=== PATIENT | female | born 1945 ===

== ENCOUNTER → 2017-02-26 | Emergency (ER) | payer MEDICARE, OTHER ==
[~2017-02-26] MED LIST: Bupivacaine PF 0.5% 30 ML VIAL ONE; Midazolam HCl 10 mg/2 ml Vial ONE; Ondansetron HCl/PF 4 MG/2 ML Vial ONE
--- NOTE | 2017-02-26 23:45 | RAD ---
LEFT SHOULDER THREE VIEWS: 02/26/17 HISTORY: Fall, left shoulder pain. FINDINGS/IMPRESSION: There is anterior/subcoracoid dislocation of the glenohumeral joint. POS: [id number]
--- NOTE | 2017-02-27 10:42 | RAD ---
LEFT SHOULDER 3 VIEWS: Date: 02/27/17 HISTORY: Follow-up left shoulder dislocation after reduction. COMPARISON: 02/26/17. FINDINGS: The previously noted anterior subcoracoid dislocation of the left shoulder has been reduced. AC join t arthrosis. IMPRESSION: Reduction of the previously noted anterior subcoracoid left glenohumeral joint dislocation. POS: LINDA
== END ==
LOC: MADERS 23:24
DX: S43.015A Anterior dislocation of left humerus, initial encounter (principal); F32.9 Major depressive disorder, single episode, unspecified; Z79.899 Other long term (current) drug therapy; W18.09XA Striking against other object with subsequent fall, initial encounter
CPT/HCPCS: 23650; 96374; 96375; 96376; G0390; J1170; J2250; J2405; S0020

== ENCOUNTER 2019-02-24 13:34 | Emergency (ER) | payer BC, MEDICARE ==
[2019-02-24] MEDS ORDERED: Lidocaine 1% w/Epinephrine 1:100K 30 ML VIAL ONE (13:53)
[2019-02-24] MEDS ORDERED: Adacel (T-DAP) 0.5 ML SYRINGE ONE (13:56)
[2019-02-24] MEDS ORDERED: Triple Antibiotic Oint 1 GM Packet ONE (14:14)
== END 2019-02-24 14:57 | disposition home or self-care (01) ==
LOC: MADERS 13:34
DX: S81.811A Laceration without foreign body, right lower leg, initial encounter (principal); F32.9 Major depressive disorder, single episode, unspecified; Z79.899 Other long term (current) drug therapy; Z79.82 Long term (current) use of aspirin; W26.8XXA Contact with other sharp object(s), not elsewhere classified, initial encounter
CPT/HCPCS: 12002; 90471; 90715; J2001

== ENCOUNTER 2025-07-08 18:33 | Emergency (ER) | payer MEDICARE, OTHER ==
[~2025-07-08 18:33] MED LIST changes: -Bupivacaine PF 0.5% 30 ML VIAL ONE; +Iopamidol 370 76% 100 ML VIAL ONE; -Midazolam HCl 10 mg/2 ml Vial ONE; -Ondansetron HCl/PF 4 MG/2 ML Vial ONE
[2025-07-08] MEDS ORDERED: Ketorolac Tromethamine 30 MG (1 mL) VIAL ONE (18:53)
[2025-07-08] MEDS ORDERED: Ondansetron PF 4 MG/2 ML Vial ONE (18:53)
[2025-07-08 19:06] LABS: Glucose, Urine (Dipstick) Negative (Negative); Leukocyte Negative (Negative); Protein, Urine (Dipstick) Negative (Neg-Trace); Specific Gravity, Urine 1.015 (1.005-1.030)
[2025-07-08 19:16] LABS: #Basophils 0.1 thou/uL (0.0-0.2); #Eosinophils 0.1 thou/uL (0.0-0.7); #Lymphocytes 2.0 thou/uL (1.20-3.40); #Monocytes 0.9 thou/uL (0.11-0.59); #Neutrophils 8.0 thou/uL (1.40-6.50); %Basophils 0.9 % (0.0-1.0); %Eosinophils 1.2 % (0.0-10.0); %Lymphocytes 18.1 % (21.0-51.0); %Monocytes 8.1 % (0.0-10.0); %Neutrophils 71.7 % (42.0-75.0); Hematocrit 46.9 % (36.0-47.0); Hemoglobin 15.1 g/dL (12.0-16.0); Mean Corpuscular Hemoglobin 29.3 pg (27.0-31.0); Mean Corpuscular Volume 90.8 fl (78.0-98.0); Platelet Count 274 10x3/uL (130-400); Red Blood Cell (RBC) Count 5.16 mill/uL (4.20-5.40); White Blood Cell (WBC) Count 11.1 10x3/uL (4.8-10.8)
[2025-07-08 19:20] LABS: CAUTI Indications for Culture Pelvic or flank pain; RBC/HPF 0-3 HPF (0-3); WBC/HPF 0-3 HPF (0-3)
[2025-07-08 19:21] LABS: Bacteria/HPF Rare-Few HPF (None Seen)
[2025-07-08 19:22] LABS: Urine Culture Reflex No No
[2025-07-08 19:35] LABS: ALT (SGPT) 13 U/L (Less than 34); AST (SGOT) 20 U/L (11-34); Albumin 3.9 g/dL (3.1-4.5); Alkaline Phosphatase 63 U/L (40-110); Anion Gap 13 mmol/L (10-20); BUN (Urea Nitrogen) 15 mg/dL (9.8-20.1); Bilirubin, Total 0.3 mg/dL (0.3-1.2); Calc. Creatinine Clearance 0 mL/min (70-130); Calcium 9.8 mg/dL (7.8-10.44); Carbon Dioxide 24 mmol/L (23-31); Chloride 104 mmol/L (98-107); Globulin 2.9 g/dL (2.4-3.5); Glucose 114 mg/dL (83-110); Potassium 4.3 mmol/L (3.5-5.1); Sodium 137 mmol/L (136-145)
== END 2025-07-08 20:40 | disposition home or self-care (01) ==
LOC: MADERS 18:33
DX: M54.50 Low back pain, unspecified (principal); Z79.899 Other long term (current) drug therapy
CPT/HCPCS: 74177; 80053; 81001; 85025; J1885; J2270; J2405; 96374; 96375; Q9967